=== PATIENT | male | born 1955 | race Native Hawaiian/Other Pacific Islander ===

== ENCOUNTER 2017-07-17 18:05 | Outpatient (CLI) | payer OTHER | END 2017-07-17 18:09 | disposition short-term general hospital (02) | LOC: AMB 18:05 | DX: R07.89 Other chest pain (principal) | CPT/HCPCS: A0425; A0427 ==

== ENCOUNTER 2017-07-17 18:14 | Emergency (ER) | payer OTHER ==
[~2017-07-17] VITALS: Ht 190.5 cm; Wt 97.5 kg
[2017-07-17 18:45] LABS: PLATELET COUNT 291 K/uL (142-355)
[2017-07-17 18:49] LABS: POTASSIUM 3.5 mmol/L (3.6-5.2); SODIUM 138 mmol/L (136-145)
[2017-07-17 20:25] VITALS: BP 1128/68; TEMP 98.3
== END 2017-07-17 20:28 | disposition home or self-care (01) ==
LOC: ED 18:14
DX: R07.89 Other chest pain (principal); I48.91 Unspecified atrial fibrillation; F10.10 Alcohol abuse, uncomplicated
CPT/HCPCS: 36415; 80053; 80307; 80320; 81000; 82550; 84484; 85027; 93005; 96365; 96374; 99284; G0479; J2270